=== PATIENT | female | born 1975 | race Two or more races ===

== ENCOUNTER 2020-08-01 11:45 | Inpatient (IN) | payer OTHER ==
[~2020-08-01] VITALS: Ht 157.5 cm; Wt 87.1 kg
[2020-08-01] MEDS ORDERED: PRILOSEC PO (13:21)
[2020-08-01] MEDS ORDERED: MEGESTROL ACETA40 MG PO (13:22)
[2020-08-01] MEDS ORDERED: PROFERRIN-FORT1 EACH PO (13:22)
[2020-08-08] MEDS ORDERED: OMEPRAZOLE40 MG PO (07:47)
[2020-08-10] MEDS ORDERED: POLY119PG PO (06:59)
[2020-08-10] MEDS ORDERED: SIMETHICONE125 M1 PO (06:59)
[2020-08-10] MEDS ORDERED: IBUPROFEN800 MG PO (06:59)
[2020-08-10] MEDS ORDERED: NEURONTIN600 MG PO (06:59)
== END 2020-08-10 09:28 | disposition home or self-care (01) | DRG 743 ==
LOC: SURG-SUITE 08-08 06:53 → O/R 08-08 06:53 → OB/GYN 08-08 07:00 → SURG-SUITE 08-08 10:52 → OB/GYN 08-08 11:45 → SURG-SUITE 08-10 09:28
PROVIDERS: ADMIT Obstetrics & Gynecology; ATTEND Obstetrics & Gynecology
PROC: 0UT90ZZ Resection of Uterus, Open Approach (ICD-10-PCS; principal; 2020-08-10)
PROC: 0UB70ZZ Excision of Bilateral Fallopian Tubes, Open Approach (ICD-10-PCS; 2020-08-10)
DX: N80.0 Endometriosis of uterus (principal); D25.1 Intramural leiomyoma of uterus; D25.0 Submucous leiomyoma of uterus; D25.2 Subserosal leiomyoma of uterus; N72 Inflammatory disease of cervix uteri